=== PATIENT | female | born 1940 | race Caucasian/White ===

== ENCOUNTER → 2023-08-22 08:18 | Outpatient (REF) | payer MEDICARE, SELFPAY | LOC: DHCBC HW 08:18 | PROVIDERS: ATTENDING PHYSICIAN Internal Medicine Cardiovascular Disease; FAMILY PHYSICIAN Family Medicine | DX: I48.0 Paroxysmal atrial fibrillation (principal); R00.2 Palpitations; C18.9 Malignant neoplasm of colon, unspecified | CPT/HCPCS: 93306 ==

== ENCOUNTER 2024-08-25 09:40 | Day surgery (SDC) | payer MEDICARE, SELFPAY ==
[2024-08-25 11:33] VITALS: BMI 28.3
[2024-08-25] MEDS: SILVADENE 1 APPLIC TOPICAL (12:53)
== END 2024-08-25 13:03 | disposition home or self-care (01) ==
LOC: CATH 09:40
PROVIDERS: ATTENDING PHYSICIAN Internal Medicine; FAMILY PHYSICIAN Family Medicine; OTHER PHYSICIAN Internal Medicine Cardiovascular Disease
DX: I48.19 Other persistent atrial fibrillation (principal); I44.4 Left anterior fascicular block; I47.19 Other supraventricular tachycardia; I10 Essential (primary) hypertension; Z79.01 Long term (current) use of anticoagulants
CPT/HCPCS: 92960; 93005

== ENCOUNTER 2024-10-14 06:07 | Day surgery (SDC) | payer MEDICARE, SELFPAY ==
[2024-09-29 11:28] VITALS: BMI 28.8
[2024-10-14] VITALS (12 sets, daily range): BP systolic 131–173; BP diastolic 67–90; BMI 28.4
--- NOTE | 2024-10-14 11:04 | ITS.CL.ABL ---
Auto Garage Attendant - Ablation
Ablation
Procedure Report:
AFIB ablation:
Ms. 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
Date of the Procedure:
10/14/2024
Indications:
Persistent with recurrent atrial fibrillation
Pre-Operative Diagnosis:
Persistent with recurrent atrial fibrillation
Post-Operative Diagnosis:
Persistent with recurrent atrial fibrillation
Procedure Performed:
Atrial fibrillation ablation with Pulsed-Field approach for pulmonary vein isolation
Posterior wall isolation
Septal wall atrial tachycardia/flutter ablation.
Performing Physician:
Rosalinda Talavera MD
Assistants:
EP staff
Anesthesia:
See anesthesia records
Detailed Description of the Procedure:
Written informed consent was obtained from the patient after a full explanation of the risks and benefits of the procedure including the risks of sedation and anesthesia.
The patient was brought to the electrophysiology laboratory in stable condition in fasting state. Continuous electrocardiographic and hemodynamic monitoring was initiated.
The initial rhythm was sinus.
The procedure site was meticulously prepared with surgical scrub and allowed to dry with no pooling. Sterile draping was applied to cover the procedure site. The image intensifier was draped with sterile bag and positioned over the patient. After
infusion of local anesthetic, vascular access was obtained under ultrasound guidance and sheaths were placed over guide wire as detailed below.
Sheath and Catheter Placement:
The following catheters / sheaths were placed
Sheaths:
��������� 17Fr steerable sheath (Faradrive�, [employer]) in right femoral
��������� 9Fr in right femoral vein
��������� 8Fr in left femoral vein
Catheters:
��������� JOSHUA HD Grid mapping catheter � at locations of RA, LA
��������� Farawave� PFA catheter
��������� ICE catheter �Abott ViewFlex - at locations of RA, SVC, and RV.
��������� Decapolar Bard catheter in RA and CS
Venoplasty:
The iliac veins were stenosed and th wires could not be advanced into to IVC on the right side and the access was obtained on the left femoral vein. The wire was placed from left femoral vein to IVC but there was also significant stenosis noted and
8Fr long sheath could not be advanced into the IVC.
The glide wire was placed on the right femoral vein and was able to slide into the IVC. The long 7Fr sheath dilator was placed and the stenotic area was dilated to 10Fr long sheath. Then another wire was placed from right femoral vein to the SVC and
a long 15 Fr dilator was placed in the IVC that was able to dilate the right iliac vein. Then the other long 10 fr sheath was placed over the extra stiff guidewire into the IVC.
Ultimately using the baylis wire, the Faradrive sheath was placed into the IVC using the curves of the defletable sheath over the dilator.
Intracardiac ECHO:
An 8-Marshallese AcuNav intracardiac ECHO (ICE) probe was advanced through the 9-Marshallese sheath in the right femoral vein into the right atrium under fluoroscopic and ICE ultrasound image guidance and a baseline ECHO study was performed. The left atrial
size was dilated. There was moderate tricuspid regurgitation. The aortic valve was grossly normal. There was borderline left ventricular systolic functions. There is trace pericardial effusion. All the four veins were identified and has flow
identified.
During the procedure, ICE was used for monitoring of complications, guidance of trans-septal puncture, monitor the catheter position and tracking ablation lesions. No change in the pericardial space noted throughout the procedure.
Trans-septal Puncture:
Heparin was initiated and infused to maintain appropriate ACT. A J-tipped guidewire was advanced through the 8-Marshallese sheath in the right femoral vein into the superior vena cava under fluoroscopic and ICE guidance. The 9-Marshallese sheath was exchanged
for a Faradrive sheath which was advanced into the superior vena cava. A transseptal RF pigtail via Faradrive connect system was utilized to perform the trans-septal puncture. The apparatus was withdrawn until it was in contact with the fossa
ovalis. The position was adjusted based on fluoroscopy and ultrasound images from ICE. Under fluoroscopic, hemodynamic and ICE ultrasound guidance, left atrium was cannulated by applying RF energy. Once atrial septum was cannulated, the pigtail wire
was advanced through the needle into the left atrium. The guide wire was advanced into the left superior pulmonary vein. Both the sheath and the dilator was advanced into the left atrium. The dilator with the needle was withdrawn. Blood was
aspirated from the Faradrive sheath and arterial blood confirmed. The sheath was flushed. Saline injection noted into the left atrium on ICE. The mapping catheter was advanced in the sheath into the left pulmonary vein. Left atrial pressure was
measured.
3D Electroanatomic Mapping:
Using the HD Grid catheter advanced through sheath into the left atrium, an electroanatomic map (EAM) of the left atrium was created using [employer] mapping system. The map was used for localization of catheter position and tacking of ablation
lesions.
The EAM of the left atrium showed 4 pulmonary veins with all 2 left sided veins electrically isolated from the body the LA and the right sided veins are reconnected to the LA. It showed extensive low voltage in the LA and it was severely dilated.
Patient went into atrial flutter/ atrial tachycardia 480 msc CL. The tachycardia was out from left atrial lateral wall and was out from the RA lateral wall.
The tachycardia was mapped and was coming from the atrial septal as the earliest. The RP was long. The ventricular pacing was attempted to rule out atypical AVNRT but it terminated the tachycardia.
The tachycardia was easily inducible but could not be entrained from the RV pacing or LV pacing.
The LA was dilated in size.
Following the EAM, preparation were made for ablation.
Ablation:
Ablation # 1: Pulmonary vein Isolation:
Glycopyrrolate 0.2 mg was given prior to the placement of ablation. Using [employer] pulsed wave ablation system, pulmonary vein isolation was achieved. First the Lisa drive ablation catheter was placed in the LSPV and ostial ablation lesions were
performed in �[place] formation� in the PV ostium circumferentially. Then the catheter was placed on the antral location in �flower formation� and lesions were placed circumferentially on the antrum of the vein.
In the similar fashion, the LIPV were isolated.
Then the catheter was moved to right sided veins. The ostial and antral ablations were placed as noted above to the RSPV and RIPV.
Ablation # 2: Posterior wall isolation:
Using the pulsed field ablation catheter, the catheter was placed on the posterior wall and moved around the posterior wall to have adequate contact and ablations were placed isolating the posterior wall.
Ablation # 3: Septal wall atrial flutter / tachycardia:
The earliest part of the LA was coming form the septum indicating either RA source of a biatrial etiology.
Using the farapulse catheter, the catheter was placed on the atrial septum from the LA side and additional ablations were placed on the septal wall.
Post ablation Electroanatomic mapping:
Once ablation was completed, the EAM of the LA was done again in sinus rhythm with excellent demarcation of LA myocardium and isolated antral tissue.
The JORGE LUIS had healthy signals and was not isolated.
EPS and Confirmation of the PVI and bidirectional block:
Following achievement of entrance block at the pulmonary veins, pacing from the HD catheter in each of the four veins at 10 milliamps for 2 milliseconds showed entrance and exit block. All PVI were rechecked at the end of the case and remained
isolated with dissociated and local capture with pacing. Entrance and exit block were demonstrated in all veins.
The RA lateral wall was paced aggressively but no arrhythmia was inducible at this time. Multiple attempts were not able to induce that tachycardia that was easily inducible and was rather incessantly present.
The AH was 111 and HV was 53 � unchanged.
Procedure End
ICE study was done again that showed no change in epicardial accumulation. No complications noted.
Following the completion of the EP study, catheters were removed. Protamine 40 mg was given at the end of the procedure and ACT was checked repeatedly. The sheaths were removed and hemostasis achieved with manual compression after acceptable ACT is
achieved.
Left atrial Pressure:
Pre-Procedure: Mean LA pressure was 16mmHg (AF)
Post-Procedure: Mean LA pressure was 14mmHg (sinus)
Post-Procedure: Mean LR pressure xaq23gmMo
Fluoro time:
5.7 min / 26.9 mGy
Estimated Blood loss:
<10 cc
Specimens Removed:
None.
Implants / Devices:
None
Urine output:
None
Packs / Drains/ Tubes:
None
Instrument / Sponge Count Correct:
Yes
Complications of the Procedure:
None
Condition of Patient at Time of Transfer:
Hemodynamically stable with no neurological or vascular compromise.
Summary:
Successful atrial fibrillation ablation with Pulsed Field approach for pulmonary vein isolation and posterior wall isolation
Figures from the Procedure:
Figure 1: The electroanatomic mapping (EAM) of the left atrium with bipolar voltage (purple indicates normal electrical activity with nix as no myocardial muscle electric activity indicating a line of block or scar.
AT/AFL
[2024-10-14] MEDS: TYLENOL 650 MG PO (12:00)
[2024-10-14] MEDS: ANESTHETIC LOZENGE 1 LOZENGE PO (12:42)
[2024-10-14 15:10] LABS: ACT-LR - POC > 397 Seconds (116-155)
[2024-10-14 15:10] LABS: ACT-LR - POC > 397 Seconds (116-155)
[2024-10-14 15:10] LABS: ACT-LR - POC > 397 Seconds (116-155)
[2024-10-14 15:10] LABS: ACT-LR - POC > 397 Seconds (116-155)
--- NOTE | 2024-10-14 15:28 | W.PN.UPDATE ---
Update Note
Progress Note Update
83 yo WF s/p PVI (same day). She denies cp, sob, mild sore throat, voiding, keyshawn diet, EKG SR 1deg AVB, RBBB, LAFB, b/l groins c/d/i no HT, soft. She will resume Eliquis tonight. She will continue dofetilide and metoprolol xl. Activity restrictions
reviewed. 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 She is for d/c home after 330p if groins stable.
== END 2024-10-14 15:25 | disposition home or self-care (01) ==
LOC: CATH 06:07
PROVIDERS: ATTENDING PHYSICIAN Internal Medicine Cardiovascular Disease; FAMILY PHYSICIAN Family Medicine; OTHER PHYSICIAN Internal Medicine Cardiovascular Disease
DX: I48.19 Other persistent atrial fibrillation (principal); I48.92 Unspecified atrial flutter; I10 Essential (primary) hypertension; C50.919 Malignant neoplasm of unspecified site of unspecified female breast; I44.4 Left anterior fascicular block; Z85.038 Personal history of other malignant neoplasm of large intestine; Z79.01 Long term (current) use of anticoagulants; I47.19 Other supraventricular tachycardia; G47.00 Insomnia, unspecified; Z79.811 Long term (current) use of aromatase inhibitors; Z79.52 Long term (current) use of systemic steroids; Z88.8 Allergy status to other drugs, medicaments and biological substances; Z88.2 Allergy status to sulfonamides; J98.4 Other disorders of lung; Z85.3 Personal history of malignant neoplasm of breast
CPT/HCPCS: C1732; C1769; C1892; C1894; C1759; C1733; C1766; 85347; 93005; 93655; 93656; 93657

== ENCOUNTER 2025-01-18 18:42 | Emergency (ER) | payer MEDICARE, SELFPAY ==
[2025-01-18 18:47] VITALS: BP 172/86; BMI 29.0
[2025-01-18 19:12] LABS: Hematocrit 43.7 % (37.0-47.0); Hemoglobin 14.8 g/dL (12.0-16.0); Mean Corp Hgb Conc. 33.9 g/dL (33.0-37.0); Mean Corpuscular Volume 90.3 fL (81.0-99.0); Nucleated Red Blood Cells % 0 %; Platelet Count 209 10^3/uL (130-400); Red Cell Dist. Width 13.4 % (11.5-14.5)
--- NOTE | 2025-01-18 19:31 | PHANOTE ---
01/18/2025, pt. was prescribed Propranolol ER 120 mg to be taken daily and was filled on 01/13/2025 and Propranolol 20 mg to be taken TIDPRN for palpitations and was filled on 01/13/2025; however, pt. took both of these meds. on Friday
(01/15/2025) and experienced a racing heart and will not be taking anymore of it per pt.
[2025-01-18 20:35] LABS: Blood Urea Nitrogen 9 mg/dl (7-17); Calcium 9.2 mg/dl (8.4-10.2); Carbon Dioxide 21 mmol/L (22-30); Chloride 104 mmol/L (98-107); Estimated Creatinine Clearance 64 ml/min; Glucose 120 mg/dl (70-99); Magnesium 1.8 mg/dl (1.6-2.3); Sodium 132 mmol/L (135-145); eGFR > 60.00
[2025-01-18 21:01] VITALS: BP 203/88
[2025-01-18 21:07] LABS: TSH 1.49 uIU/ml (0.47-4.68)
[2025-01-18 21:27] LABS: Potassium 4.1 mmol/L (3.5-5.1)
[2025-01-18] MEDS: TYLENOL 1000 MG PO (21:28)
[2025-01-18 21:42] LABS: Troponin I < 0.012 ng/ml
[2025-01-18 22:04] VITALS: BP 185/80
--- NOTE | 2025-01-18 22:12 | ED.GENMED ---
History of Present Illness
General
Chief Complaint: Heart Rate Problem
Source: patient and family
Time Seen by Provider: 01/18/25 19:24
History of Present Illness
History of Present Illness:
Note:
CHIEF COMPLAINT(S)
Palpitations and episodes of sweating and clamminess.
HISTORY OF PRESENT ILLNESS
The patient is an 84-year-old female with a history of atrial fibrillation and paroxysmal supraventricular tachycardia, who presented with an acute episode of palpitations that began today around 3:45 PM. The episodes are characterized by
clamminess, difficulty moving, and a sense of nervousness. The patient reports these symptoms as significantly different from previous episodes, noting, 'I never had the sweating.' She experiences similar episodes that can occur up to three times a
week or sometimes not for weeks. Previously, she tolerated episodes better but noted that todays episode had her heart beating very fast, accompanied by sweating which was atypical for her. She attempted to manage the episode with Metoprolol
Tartrate, 25 mg initially, followed by another 25 mg due to persistent palpitations, without improvement. The patient has undergone three cardiac ablations in the past and has follow-up with a creche attendant, whom she saw last . At the time of
the visit, she was asymptomatic. Despite that, today she had an episode and had initially contemplated handling it at home before seeking medical advice due to the exacerbated symptoms.
CHRONIC MEDICAL CONDITIONS SIGNIFICANTLY AFFECTING CARE
- Atrial Fibrillation
- Paroxysmal Supraventricular Tachycardia
- Itch related to medication
- Hypertension
MEDICATIONS
- Metoprolol Succinate, 100 mg twice daily
- Metoprolol Tartrate, 25 mg on occasion
- Anticoagulant (specific name not provided)
- Prednisone for itch
REVIEW OF SYSTEMS
- Cardiovascular: Reports episodes of fast heartbeats.
- Integumentary: Sweating during episodes of palpitations.
PHYSICAL EXAM
General: Alert, no acute distress.
Skin: Warm, dry.
Head: Normocephalic, atraumatic.
Neck: Supple, trachea midline.
Eye, Ears, Nose, Mouth and Throat: Oral mucosa moist.
Cardiovascular: Normal peripheral perfusion, No edema. During exam, telemetry monitoring revealed transition into atrial flutter with two to one conduction at a rate of 130 bpm.
Respiratory: Respirations are non-labored.
Gastrointestinal: Abdomen nondistended.
Back: Normal range of motion, Normal alignment.
Musculoskeletal: Normal range of motion, normal strength.
Neurological: Alert and oriented to person, place, time, and situation, No focal neurological deficit observed.
Psychiatric: Cooperative, appropriate mood and affect.
PROBLEM LIST
- Acute: Atrial flutter episodes, palpitations, uncontrolled hypertension
- Chronic: Atrial fibrillation, paroxysmal supraventricular tachycardia
PLAN
- Monitor telemetry to assess the frequency and duration of arrhythmias.
- Repeat electrocardiography to confirm current cardiac rhythm status.
- Discuss results with the cardiology team, potentially coordinating with Dr. Haley group for further management.
- Check heart enzyme (Troponin) levels, electrolytes, and kidney function to evaluate any complicating factors.
- Advise on potential adjustments to medication dosing to avoid excessive beta-blockade while ensuring adequate rate control.
DIFFERENTIAL DIAGNOSIS
The Differential Diagnosis includes, in no particular order and is not limited to:
1. Atrial Fibrillation
2. Paroxysmal Supraventricular Tachycardia
3. Atrial Flutter
4. Anxiety or Panic Disorder
5. Dehydration
6. Hyperthyroidism
7. Coronary Artery Disease
8. Medication-related side effects
9. Sinus Tachycardia
10. Myocardial Infarction
CARE-UPDATE
01/18/25 - 20:25
Patients daughter provided additional information..
CARE-UPDATE
01/18/25 - 22:11
No changes to current medications recommended by cardiology. Patient remains in normal sinus rhythm. Follow-up as an outpatient.
Disposition:
SUMMARY OF ENCOUNTER
The patient, an 84-year-old female with a known history of atrial fibrillation, presented with an episode of palpitations, sweating, and clamminess. Upon evaluation in the emergency department, she was found to be in normal sinus rhythm with a
stable heart rate of 65 bpm. Laboratory tests including troponin were negative, and the patient�s electrolyte levels were normal. An EKG confirmed her current normal sinus rhythm. Management was discussed with cardiology, and it was agreed that the
patient could be managed as an outpatient. The patient and her son were informed of the findings and advised to return if symptoms worsened.
DISPOSITION
Discharge.
ASSESSMENT
The patient is currently in normal sinus rhythm with stable vital signs and reassuring laboratory results. Her acute symptoms appear to have resolved.
MANAGEMENT OF THE PATIENTS CARE WAS DISCUSSED WITH
Cardiology team.
PLAN
Outpatient management with instructions to return if symptoms worsen.
INDEPENDENT REVIEW OF LABS AND INTERPRETATION OF TESTS
My independent review of the Basic Metabolic Panel (BMP) is normal, including normal potassium and sodium levels. My independent review of the troponin is negative. My independent review of thyroid-stimulating hormone (TSH) is normal.
PATIENT EDUCATION AND COUNSELING
The patient was informed about the current findings, the return of normal sinus rhythm, and the negative laboratory results, including normal troponin and electrolytes. They were advised to seek medical attention if symptoms worsen.
FOLLOW-UP INSTRUCTIONS
The patient is directed to follow up with her creche attendant as previously planned and to return to the emergency department if there is any worsening of symptoms.
MEDICAL DECISION MAKING
- Number and Complexity of Problems Addressed: Chronic conditions affecting care include atrial fibrillation. Differential Diagnosis includes: Atrial Fibrillation, Paroxysmal Supraventricular Tachycardia, Atrial Flutter, Anxiety or Panic Disorder,
Dehydration, Hyperthyroidism, Coronary Artery Disease, Medication-related side effects, Sinus Tachycardia, Myocardial Infarction.
- Data:
Category 1: My independent interpretation of the EKG shows normal sinus rhythm.
Category 3: Discussion of management with cardiology.
- Risk: Prescription medication was reviewed in consultation with cardiology, and no changes were recommended to current management. Due to outpatient follow-up and stable current condition, the patient was considered for discharge with safety in
management guaranteed through outpatient follow-up.
DIAGNOSIS
Normal Sinus Rhythm (I49.9), Atrial Fibrillation (I48.0). Uncontrolled hypertension
Past History
Past History
ED Past Medical History: Arrthythmia (Atrial fibrillation) and HTN
ED Past Surgical History: Cardiac (Ablation)
Social History
Tobacco: Non-smoker
Alcohol: None
Phy Exam
Physical Exam
Physical Exam:
.
Course
Orders/Labs/Results
Orders:
Orders
01/18/25 18:46
Electrocardiogram (*1) Urgent
Reason for Study: Chest Pain
Cardiac Monitoring- Treatment ONCE
EKG- Treatment ONCE
IV Insert/Care/Rem.- Treatment PRN
01/18/25 19:03
Complete Blood Count/With Diff Urgent
TSH Urgent
Comment: ADD ON
01/18/25 19:24
Add On- LAB Urgent
Tests Added?: Mg, TSH
01/18/25 20:00
EKG [Electrocardiogram (*1)] Urgent
Reason for Study: Palpitations
EKG- Treatment ONCE
01/18/25 20:02
Basic Metabolic Panel Urgent
Magnesium Urgent
01/18/25 20:58
Troponin I Urgent
01/18/25 21:01
Potassium Urgent
01/18/25 21:23
Acetaminophen [Tylenol] 1,000 mg PO NOW STA
Abnormal Lab Results
01/18/25
20:02
Sodium 132 L mmol/L
(135-145)
Carbon Dioxide 21 L mmol/L
(22-30)
Creatinine 0.4 L mg/dL
(0.6-1.0)
Glucose 120 H mg/dl
(70-99)
01/18/25 19:03
01/18/25 21:01
Vital Signs
Initial and Last Documented VS:
Initial Vital Signs
Temp Pulse Resp BP Pulse Ox
97.8 F 128 18 172/86 97
01/18/25 18:47 01/18/25 18:47 01/18/25 18:47 01/18/25 18:47 01/18/25 18:47
Last Documented Vital Signs
Temp Pulse Resp BP Pulse Ox
97.8 F 64 18 185/93 98
01/18/25 18:47 01/18/25 22:05 01/18/25 22:05 01/18/25 22:13 01/18/25 22:17
*Pulse Oximetry
SaO2: 98
Oxygen Mode of Delivery: Room air
Patient hypoxic: no
*Bedspring Assembler Interpretation
Rate: normal
Interpretation: normal
Rhythm: sinus
*Critical Care Note
Total Time (30-74mins, 75-104mins- exclusive of procedures): 30 minutes
ED Attending Note
-
Portions of this chart may have been created with voice recognition software.� Occasional wrong word or��sound alike� substitutions may have occurred due to the inherent limitations of voice recognition software.
Discharge Plan
Departure
Patient Disposition: Home (Routine Discharge)
Date of Disposition: 01/18/25
Time of Disposition: 22:12
Patient with high blood pressure during this ER visit?: Yes
Discharge Problem:
Atrial fibrillation with RVR
Instructions: Atrial Fibrillation (DC), BLOOD PRESSURE
Prescriptions:
No Action
cetirizine 10 MG tablet
10 mg PO HS
hydralazine 25 MG tablet
25 mg PO BID
dofetilide 250 MCG capsule
250 mcg PO BID Qty: 60 6RF
prednisone 5 mg Tablet
5 mg PO Q48H@0800
zolpidem [Ambien] 5 mg Tablet
5 mg PO HS
letrozole 2.5 mg Tablet
2.5 mg PO DAILY
metoprolol tartrate 25 mg Tablet
25 mg PO Q6HPRN PRN (Reason: palpitations & elevated HR)
Patient Comments:
01/18/2025, pt. took 2 tablets today about 2 hours apart.
Eliquis 5 mg Tablet
5 mg PO BID
metoprolol succinate 100 mg Tablet Extended Release 24 Hr
100 mg PO BID
Keytruda 25 mg/mL Solution
0 mg IV Q6W
Patient Comments:
01/18/2025, pt. unsure of dose; next dose due this Friday (01/21/2025) per pt.
cholecalciferol (vitamin D3) [Vitamin D3] 50 mcg (2,000 unit) Tablet
50 mcg PO DAILY
acetaminophen [Tylenol Extra Strength] 500 mg Tablet
500 mg PO QIDPRN PRN (Reason: mild pain)
Referrals:
Saige Avendaño DO [Family Provider]
Activity Restrictions/Additional Instructions:
Please call your creche attendant for follow-up tomorrow. Return immediately for chest pain, palpitations, weakness of any kind, worsening symptoms or any other concerns.
Interventions
Interventions:
*Risk Screen - Suicide Last Done: 01/18/25 18:47
*General Assessment Last Done: 01/18/25 18:47
*Neglect/Abuse Screening Last Done: 01/18/25 18:47
*ED- Fall Risk Assessment Last Done: 01/18/25 18:47
*ED COVID-19 Vaccine History Last Done: 01/18/25 18:47
*Nursing Disposition Last Done: 01/18/25 22:31
ED- Cardiac Assessment Last Done: 01/18/25 18:47
ED- Pulmonary Assessment Last Done: 01/18/25 18:47
Discharge Date and Time
Discharge Date/Time: 01/18/25 22:31
Print Language: KAZAKH
[2025-01-18 22:13] VITALS: BP 185/93
== END 2025-01-18 22:31 | disposition home or self-care (01) ==
LOC: EMR 18:42
PROVIDERS: Emergency Medicine; EMERGENCY PHYSICIAN Emergency Medicine; FAMILY PHYSICIAN Family Medicine
DX: I48.91 Unspecified atrial fibrillation (principal); I10 Essential (primary) hypertension; Z79.899 Other long term (current) drug therapy; I11.9 Hypertensive heart disease without heart failure
CPT/HCPCS: 99284; 80048; 83735; 84132; 84443; 84484; 85025; 93005

== ENCOUNTER → 2025-04-01 09:19 | Outpatient (REF) | payer MEDICARE, SELFPAY | LOC: HWRCS 09:19 | PROVIDERS: ATTENDING PHYSICIAN Internal Medicine Cardiovascular Disease; FAMILY PHYSICIAN Family Medicine | DX: I48.0 Paroxysmal atrial fibrillation (principal); R00.0 Tachycardia, unspecified | CPT/HCPCS: 93306 ==